=== PATIENT | male | born 1990 | race Caucasian/White ===

== ENCOUNTER 2023-08-18 09:34 | Inpatient (IN) ==
--- NOTE | 2023-08-18 10:11 | Emergency Department Note ---
Impression & Plan Cellulitis, Leukocytosis, Failure of outpatient treatment ED Provider Note NAME: ZAY HERNANDEZ AGE: 32 SEX: M : 1990 ARRIVES VIA: Walk-In INFORMANT: [Patient] ED PROVIDER(S): [Shivam Calhoun MD] CHIEF COMPLAINT: Infection HISTORY OF PRESENT ILLNESS: The patient is a 32-year-old male whose had 4 days of symptoms. He developed erythema of the right anterior knee. The patient was seen in our ED 2 days ago and diagnosed with cellulitis. He was placed on Bactrim and Keflex. Despite this antibiotic use, he has had increasing redness, pain. Things are not improved. The patient has no history of trauma to the knee. He has had cellulitis before. He thinks he suffered an abrasion from the wrestling mat and that this may be led to the infection. There has been no diarrhea, no cough or congestion. The patient has no history of diabetes. PMHx/PSHx/Social Hx: See Below PHYSICAL EXAM: GENERAL: Patient is in no acute distress. HEENT: No acute trauma, normocephalic atraumatic, mucous membranes moist, no nasal congestion. NECK: No stridor, no adenopathy, no meningismus, trachea is midline. LUNGS: Clear to auscultation bilaterally, no wheeze, no rhonchi, breath sounds equal. HEART: Without murmurs gallops or rubs, regular rate and rhythm. ABDOMEN: Soft, nontender, no peritonitis. EXTREMITIES: No cyanosis. The patient does have erythema and swelling to the right anterior knee, distal right thigh and proximal right tib-fib. There is warmth present. This entire area is tender with palpation. No drainage. The erythema has spread past the outlines previously placed. NEUROLOGIC: Oriented x 3, no acute motor or sensory deficits, no focal weakness. SKIN: No jaundice, no diaphoresis. DIFFERENTIAL DIAGNOSIS: Cellulitis, necrotizing fasciitis, failed outpatient management, septic joint, hematoma, among others. EMERGENCY DEPARTMENT PROCEDURES: MEDICAL DECISION MAKING: There is a mild leukocytosis, this would be consistent with infection. There was a normal hemoglobin and platelet count. No renal failure or significant electrolyte abnormality. Lactic acid level was not elevated making severe sepsis less likely. There were some subtle liver enzyme elevations. Right knee CT does show cellulitis and potential bursitis. No fracture or air within the soft tissue. On exam, the patient did have warmth and erythema as well as some swelling to the right leg around the knee. The erythema had spread past the outlined margins. The patient presents with worsening cellulitis despite 2 different antibiotics. He will require a hospital stay and IV antibiotic therapy. The patient received IV saline, 1 L. He was given IV morphine and IV Zofran. He was given IV ceftriaxone and IV vancomycin. I did speak with the patient about his need for a hospital stay, I did speak with case management, the on-call hospitalist was consulted. Prior/Outside records/notes reviewed: Previous ED note from 08/16/2023 discussing his presentation and treatment for cellulitis. Imaging/x-ray results per my interpretation: Chronic Medical/Social conditions affecting care: Care/Management discussed with: Case management, the on-call hospitalist. Level of care consideration(s): After review of the information above and other included data: --I believe the patient requires escalation of care to admission DISPOSITION: Admission Past Med/Surg History Medical History No pertinent past medical history Surgical History (Updated 08/18/23 @ 12:42 by Frank Dockery MD) History of sinus surgery Hx of LASIK H/O arthroscopy of left knee Social History Smoking Status: Never smoker Preferred Language: Ukrainian Feels Safe at Home: Yes Allergies Allergies Allergy/AdvReac Type Severity Reaction Status Date / Time No Known Allergies Allergy Verified 08/18/23 12:13 Home Meds Home Medications Medication Instructions Recorded Confirmed ibuprofen 200 mg tablet 200 mg PO Q6H PRN Pain 08/18/23 08/18/23 Previous Rx's Medication Instructions Recorded cephalexin 500 mg capsule 500 mg PO Q12H 10 days #20 caps 08/16/23 sulfamethoxazole 800 1 tab PO BID 10 days #20 tabs 08/16/23 mg-trimethoprim 160 mg tablet (Bactrim DS) Results & Data (ED) Vital Signs Vital Signs - 24 hr 08/18/23 09:38 08/18/23 11:14 Temperature 36.8 C Temperature Source Oral Pulse Rate 88 Pulse Rate [Radial] 70 Pulse Rhythm [Radial] Regular Respiratory Rate 18 18 Respiratory Effort / Characteristics Non-Labored Spontaneous Non-Labored Respiratory Depth Normal Normal Respiratory Pattern Regular Regular Blood Pressure 142/87 H Blood Pressure [Left Arm] 136/84 Blood Pressure Mean 105 Blood Pressure Mean [Left Arm] 101 Blood Pressure Position Sitting Pulse Oximetry 99 95 Oxygen Delivery Method Room Air Room Air Sepsis Recent Fever Within 48 Hours Yes Sepsis New/Unexplained Change in Mental Status N/A Sepsis Action Taken by Nursing No Action Required Home Medications Current Medication List: was personally reviewed by me Laboratory Data Attestation: I reviewed the patient's lab results. 08/18/23 10:17 08/18/23 10:17 Lab Results 08/18/23 Range/Units 10:17 WBC 11.86 H (4.8-10.8) K/ul RBC 5.20 (4.70-6.10) M/uL Hgb 14.5 (14.0-18.0) g/dl Hct 42.9 (42.0-52.0) % MCV 82.5 (80.0-100.0) fL MCH 27.9 (25.0-34.0) pg MCHC 33.8 (32.0-36.0) g/dL RDW Std Deviation 39.9 (36.4-46.3) fL RDW Coeff of Kaya 13.2 (11.5-14.5) % Plt Count 190 (130-400) K/uL MPV 10.0 (9.4-12.4) fL Immature Gran % (Auto) 0.4 % Neut % (Auto) 83.9 % Lymph % (Auto) 10.3 % [place] % (Auto) 5.0 % Eos % (Auto) 0.1 % Baso % (Auto) 0.3 % Neut # (Auto) 9.95 H (1.40-6.50) K/uL Lymph # (Auto) 1.22 (1.20-3.40) K/uL [place] # (Auto) 0.59 (0.11-0.59) K/uL Eos # (Auto) 0.01 (0.00-0.50) K/uL Baso # (Auto) 0.04 (0.00-0.20) K/uL Immature Gran # (Auto) 0.05 (0.01-0.20) K/uL Sodium 135 L (136-145) mmol/L Potassium 3.8 (3.5-5.1) mmol/L Chloride 100 (98-107) mmol/L Carbon Dioxide 25 (21-32) mmol/L Anion Gap 10 (3-11) BUN 16 (6-23) mg/dl Creatinine 1.03 (0.6-1.4) mg/dl Est Cr Clr Drug Dosing 119.6 ml/min Est GFR ( Amer) 110.1 ml/min Est GFR (Non-Af Amer) 95.0 ml/min BUN/Creatinine Ratio 15.5 (10-20) Glucose 149 H (70-99(Fasting)) mg/dl Lactate 0.9 (0.4-2.0) mmol/L Calcium 9.7 (8.6-10.3) mg/dl Total Bilirubin 1.1 H (0.2-1.0) mg/dl AST 52 H (13-39) U/L ALT 73 H (7-52) U/L Alkaline Phosphatase 70 (34-104) U/L Total Protein 7.7 (6.0-8.3) gm/dl Albumin 4.4 (3.4-5.0) gm/dl Globulin 3.3 (2.5-4.0) gm/dl Albumin/Globulin Ratio 1.3 (0.9-2) Administered Medications Discontinued Medications Sodium Chloride (Nss) 1,000 mls @ 999 mls/hr IV .Q1H1M ONE Stop: 08/18/23 11:05 Last Infusion: 08/18/23 11:23 Dose: Infused Documented By: Admin: 08/18/23 10:29 Dose: 999 mls/hr Documented By: HARESH Ceftriaxone Sodium (Rocephin) 2,000 mg in 50 mls @ 100 mls/hr IV NOW STA Stop: 08/18/23 10:34 Last Infusion: 08/18/23 11:07 Dose: Infused Documented By: Admin: 08/18/23 10:34 Dose: 100 mls/hr Documented By: HARESH Vancomycin HCl 2,500 mg/ (Sodium Chloride) 550 mls @ 200 mls/hr IV NOW ONE Stop: 08/18/23 13:18 Last Admin: 08/18/23 11:13 Dose: 200 mls/hr Documented By: KEG Ioversol (Optiray 320 500ml) 94 ml IV ONCE ONE Stop: 08/18/23 11:34 Last Admin: 08/18/23 11:33 Dose: 94 ml Documented By: JOSE Morphine Sulfate (Morphine Sulfate 4 Mg/Ml 1 Ml Carp\Vial) 4 mg IV NOW STA Stop: 08/18/23 10:06 Last Admin: 08/18/23 10:29 Dose: 4 mg Documented By: HARESH Ondansetron HCl (Ondansetron Inj 2 Mg/Ml 2 Ml Vial) 4 mg IV NOW STA Stop: 08/18/23 10:06 Last Admin: 08/18/23 10:29 Dose: 4 mg Documented By: HARESH Imaging Data Radiologist's Impression: Knee CT 08/18/23 10:05 CT SCAN OF THE RIGHT KNEE WITH IV CONTRAST CLINICAL HISTORY: Left knee swelling. Infection. COMPARISON STUDY: Radiographs of the right knee dated 08/16/2023. TECHNIQUE: CT scan of the right knee is performed from the distal femur to the proximal tibia and fibula following the IV administration of 94 mL of Optiray 320. Images are reviewed in the axial, sagittal, and coronal planes. IV contrast was administered without complication. A dose lowering technique was utilized adhering to the principles of ALARA. CT DOSE: 625.42 mGy.cm FINDINGS: The skeletal structures are well-mineralized. No fracture is seen. The joint spaces are maintained. There is no bony erosion. No joint effusion is identified. The regional musculature is normal in appearance. The popliteal vessels appear patent. There is significant prepatellar soft tissue edema and fluid, which tracks inferiorly into the upper calf, greatest laterally. No organized fluid collection is identified. No soft tissue gas is seen. IMPRESSION: 1. No acute bony abnormality is identified. 2. There is significant prepatellar soft tissue edema and fluid, which tracks inferiorly into the calf as above. The appearance favors a bursitis/cellulitis and clinical correlation will be required. 3. No organized/drainable fluid collection is identified. No soft tissue gas is seen. ACT 112: Negative or not required by law. Dictated: 08/18/2023 11:39 AM Transcribed: 08/18/2023 11:55 AM Pradeep [id number] [email or web address] Electronically signed by: Shivam Calabrese M.D. 08/18/2023 12:08 PM Discharge Plan Visit Data Chief Complaint: Infection Stated Complaint: CELLULITIS ED Provider: Shivam Calhoun Discharge Problem: Cellulitis, Leukocytosis, Failure of outpatient treatment Patient Disposition: Admitted As Inpatient Condition: Fair Forms Stand Alone Forms: [facility] Prescriptions Prescriptions: No Action ibuprofen 200 mg Tablet 200 mg PO Q6H PRN (Reason: Pain) cephalexin 500 mg capsule 500 mg PO Q12H 10 Days Qty: 20 0RF Rx Instructions: Start Date 08/16/23 - End Date 08/26/23. As of 08/18/23 pt has taken 5 doses. sulfamethoxazole-trimethoprim [Bactrim DS] 800-160 mg tablet 1 tab PO BID 10 Days Qty: 20 0RF Rx Instructions: Start Date 08/16/23 - End Date 08/26/23. As of 08/18/23 pt has taken 5 doses. Referrals Referrals: [facility] [Primary Care Provider] - Discharge Problem: Cellulitis Qualifiers: Site of cellulitis: extremity Site of cellulitis of extremity: lower extremity Laterality: right Qualified Code(s): L03.115 - Cellulitis of right lower limb Leukocytosis Qualifiers: Leukocytosis type: unspecified Qualified Code(s): D72.829 - Elevated white blood cell count, unspecified
[2023-08-18] MEDS: SODIUM CHLORIDE 0.9% 1,000 ML IV ONE (10:29)
[2023-08-18] MEDS: MoRPHine SULFATE 4 MG/ML 1 ML CARP\\VIAL IV STA (10:29)
[2023-08-18] MEDS: ONDANSETRON INJ 2 MG/ML 2 ML VIAL IV STA (10:29)
[2023-08-18] MEDS: cefTRIAXone SODIUM 2,000 MG/50 ML BAG IV STA (10:34)
[2023-08-18] MEDS ORDERED: VANCOMYCIN CONSULT ACTIVE PRN (10:34)
[2023-08-18 10:35] LABS: Basophils # (auto) 0.04 K/uL (0.00-0.20); Basophils % (auto) 0.3 %; Eosinophils # (auto) 0.01 K/uL (0.00-0.50); Eosinophils % (auto) 0.1 %; Hematocrit (blood only) 42.9 % (42.0-52.0); Hemoglobin 14.5 g/dl (14.0-18.0); Immature Granulocytes # (auto) 0.05 K/uL (0.01-0.20); Immature Granulocytes % (auto) 0.4 %; Lymphocytes # (auto) 1.22 K/uL (1.20-3.40); Lymphocytes % (auto) 10.3 %; Mean Corpuscular Hemoglobin 27.9 pg (25.0-34.0); Mean Corpuscular Hgb Conc 33.8 g/dL (32.0-36.0); Mean Corpuscular Volume 82.5 fL (80.0-100.0); Monocytes # (auto) 0.59 K/uL (0.11-0.59); Neutrophils # (auto) 9.95 K/uL (1.40-6.50); Neutrophils % (auto) 83.9 %; Platelet Count 190 K/uL (130-400); RDW Coefficient of Variation 13.2 % (11.5-14.5); RDW Standard Deviation 39.9 fL (36.4-46.3); White Blood Count 11.86 K/ul (4.8-10.8)
[2023-08-18 10:47] LABS: Albumin Globulin Ratio 1.3 (0.9-2); Albumin Level 4.4 gm/dl (3.4-5.0); BUN Creatinine Ratio 15.5 (10-20); Bilirubin,Total 1.1 mg/dl (0.2-1.0); Calcium 9.7 mg/dl (8.6-10.3); Creatinine Clr Calc Pharmacy 119.6 ml/min; Est GFR (African American) 110.1 ml/min; Globulin 3.3 gm/dl (2.5-4.0); Potassium 3.8 mmol/L (3.5-5.1); Total Protein 7.7 gm/dl (6.0-8.3)
[2023-08-18] MEDS: VANCOMYCIN HCL 2,500 MG in SODIUM CHLORIDE 0.9% 500 ML IV ONE (11:13)
[2023-08-18] MEDS: OPTIRAY 320 500ml IV ONE (11:33)
--- NOTE | 2023-08-18 12:09 | CT Scan Report ---
CT SCAN OF THE RIGHT KNEE WITH IV CONTRAST CLINICAL HISTORY: Left knee swelling. Infection. COMPARISON STUDY: Radiographs of the right knee dated 08/16/2023. TECHNIQUE: CT scan of the right knee is performed from the distal femur to the proximal tibia and fib brooke following the IV administration of 94 mL of Optiray 320. Images are reviewed in the axial, sagitt al, and coronal planes. IV contrast was administered without complication. A dose lowering technique was utilized adhering to the principles of ALARA. CT DOSE: 625.42 mGy.cm FINDINGS: The skeletal structures are well-mineralized. No fracture is seen. The joint spaces are malu ntained. There is no bony erosion. No joint effusion is identified. The regional musculature is helen l in appearance. The popliteal vessels appear patent. There is significant prepatellar soft tissue ed brandy and fluid, which tracks inferiorly into the upper calf, greatest laterally. No organized fluid co llection is identified. No soft tissue gas is seen. IMPRESSION: 1. No acute bony abnormality is identified. 2. There is significant prepatellar soft tissue edema and fluid, which tracks inferiorly into the lana f as above. The appearance favors a bursitis/cellulitis and clinical correlation will be required. 3. No organized/drainable fluid collection is identified. No soft tissue gas is seen. ACT 112: Negative or not required by law. Dictated: 08/18/2023 11:39 AM Transcribed: 08/18/2023 11:55 AM Pradeep [id number] [email or web address] Electronically signed by: Shivam Calabrese M.D. 08/18/2023 12:08 PM
--- NOTE | 2023-08-18 12:43 | History & Physical Report ---
Date of Service August 18, 2023 Assessment & Plan (1) Cellulitis: Plan: Failed Keflex and Bactrim - started 08/16 Agree with Vancomycin + Ceftriaxone Follow up blood cultures (2) Prepatellar bursitis: Plan: Consult orthopedics Plan VTE prophylaxis - Lovenox 40 mg subcu daily (despite young age she has increased risk due to calf infection) Diet - regular Disposition - observation to [facility] Admission and Anticipated Discharge Date Admission Date: August 18, 2023 History of Present Illness Chief Complaint: Cellulitis Primary Care Provider: [facility] Joe Austin is a 32-year-old male who presents to the ER due to right leg cellulitis which has been getting worse despite Bactrim and Keflex use. Initial symptoms were 4 days ago. No fever or chills. Started Keflex and Bactrim after coming to the ER 2 days ago. Initially erythema just spread with gravity but now tracking further down his leg therefore he decided to return to the ER. Joint movement is limited by generalized swelling but no specific pain in the joint itself. Allergies Allergy/AdvReac Type Severity Reaction Status Date / Time No Known Allergies Allergy Verified 08/18/23 12:13 Home Medications Medication Instructions Recorded Confirmed Type cephalexin 500 mg capsule 500 mg PO Q12H 10 days #20 caps 08/16/23 08/18/23 Rx sulfamethoxazole 800 1 tab PO BID 10 days #20 tabs 08/16/23 08/18/23 Rx mg-trimethoprim 160 mg tablet (Bactrim DS) ibuprofen 200 mg tablet 200 mg PO Q6H PRN Pain 08/18/23 08/18/23 History Past Med/Surg History Medical History No pertinent past medical history Surgical History (Updated 08/18/23 @ 12:42 by Frank Dockery MD) History of sinus surgery Hx of LASIK H/O arthroscopy of left knee Social History Smoking Status: Never smoker Second Hand Exposure: No; Do You Dip or Chew Tobacco: No; Hx Alcohol Use: Yes Alcohol type: beer Hx Substance Use: No Preferred Language: Romanian Communication Ability: Effective Hose Finisher Required: No Beliefs That Will Affect Care: None Current Living Situation: Spouse and Family Other Information That Helps Us Care for You: No Feels Safe at Home: Yes Safety Concerns: Feels Safe At This Time Assistive Devices: None Review of Systems 2 Review of Systems: All systems reviewed & are unremarkable except as noted in HPI & below Physical Exam 2 Constitutional: WD/WN, vitals as above Respiratory: normal respiratory effort, lungs clear to auscultation Cardiovascular: RRR, no murmur, no edema Gastrointestinal (Abdomen): normal bowel sounds, soft, nontender, no hepatosplenomegaly Skin: Results & Data Results & Data Vital Signs (Past 12 Hours) Vital Signs Temp Pulse Pulse Resp BP BP Pulse Ox 08/18/23 11:14 70 18 136/84 95 08/18/23 09:38 36.8 C 88 18 142/87 H 99 O2 Del Method 08/18/23 11:14 Room Air 08/18/23 09:38 Room Air Laboratory Results Abnormal lab results 08/18/23 Range/Units 10:17 WBC 11.86 H (4.8-10.8) K/ul Neut # (Auto) 9.95 H (1.40-6.50) K/uL ESR 63 H (0-15) mm/hr Sodium 135 L (136-145) mmol/L Glucose 149 H (70-99(Fasting)) mg/dl Total Bilirubin 1.1 H (0.2-1.0) mg/dl AST 52 H (13-39) U/L ALT 73 H (7-52) U/L C-Reactive Protein 20.99 H (0-0.5) mg/dl Diagnostic Findings CT SCAN OF THE RIGHT KNEE WITH IV CONTRAST CLINICAL HISTORY: Left knee swelling. Infection. COMPARISON STUDY: Radiographs of the right knee dated 08/16/2023. TECHNIQUE: CT scan of the right knee is performed from the distal femur to the proximal tibia and fibula following the IV administration of 94 mL of Optiray 320. Images are reviewed in the axial, sagittal, and coronal planes. IV contrast was administered without complication. A dose lowering technique was utilized adhering to the principles of ALARA. CT DOSE: 625.42 mGy.cm FINDINGS: The skeletal structures are well-mineralized. No fracture is seen. The joint spaces are maintained. There is no bony erosion. No joint effusion is identified. The regional musculature is normal in appearance. The popliteal vessels appear patent. There is significant prepatellar soft tissue edema and fluid, which tracks inferiorly into the upper calf, greatest laterally. No organized fluid collection is identified. No soft tissue gas is seen. IMPRESSION: 1. No acute bony abnormality is identified. 2. There is significant prepatellar soft tissue edema and fluid, which tracks inferiorly into the calf as above. The appearance favors a bursitis/cellulitis and clinical correlation will be required. 3. No organized/drainable fluid collection is identified. No soft tissue gas is seen. Medications Administered ER medications given: Normal saline 1 L bolus Morphine 4 mg IV Ondansetron 4 mg IV Ceftriaxone 2 g IV Vancomycin 2500 mg IV Code Status & VTE Plan Code Status Full VTE Prophylaxis Plan VTE Prophylaxis will be ordered: Yes PG Care Time/CCT Total # of Minutes Spent Total Time Spent with Patient: Total time spent is greater than 50% in coordination of care (as documented) at patient's floor/unit and/or counseling patient: Coding Level of Care Code 55791 INT INP/OBS CARE 2/55MIN Diagnoses Cellulitis L03.115 Laterality: right Site of cellulitis: extremity Site of cellulitis of extremity: lower extremity Prepatellar bursitis M70.40 (1) Cellulitis Laterality: right Site of cellulitis: extremity Site of cellulitis of extremity: lower extremity Qualified Code(s): L03.115 - Cellulitis of right lower limb
[2023-08-18 14:05] LABS: C Reactive Protein 20.99 mg/dl (0-0.5)
[2023-08-18] MEDS ORDERED: ONDANSETRON INJ 2 MG/ML 2 ML VIAL IV PRN (15:00)
[2023-08-18] MEDS: ENOXAPARIN INJ 40 MG/0.4 ML SYR SQ SCH (20:15)
[2023-08-18] MEDS: VANCOMYCIN HCL 1,000 MG in SODIUM CHLORIDE 0.9% 250 ML IV SCH (20:55)
--- NOTE | 2023-08-18 21:02 | Orthopedic Consultation ---
Date of Consultation August 18, 2023 Assessment & Plan (1) Cellulitis: 32-year-old male with right leg cellulitis -IV antibiotic therapy -Weightbearing as tolerated right lower extremity -Pain control -DVT prophylaxis -PT/OT -Given patient's clinical examination there is no significant intra-articular effusion we will fluctuance overlying the prepatellar bursa. Also on CT scan there does not appear to be any significant collections in the spaces that would be concerning for abscess or infected bursa. His imaging and clinical examination is consistent with cellulitis. No further orthopedic intervention. Would recommend continuing IV antibiotic therapy. Orthopedics will sign off History of Present Illness Reason for Consultation: Right leg cellulitis Attending Physician: Frank Dockery MD History of Present Illness 32-year-old male presenting with a 3-day history of right leg erythema and swelling. Patient denies any specific injuries or trauma. He does note that he was seen at an urgent care and emergency department and given a course of oral antibiotics however did not take 2 days worth of the antibiotics. The erythema has progressed. He does not have much pain with range of motion most of the pain is over the lateral aspect of his knee. These was asked to evaluate for concern for patellar bursitis. Allergies Allergy/AdvReac Type Severity Reaction Status Date / Time No Known Allergies Allergy Verified 08/18/23 12:13 Home Medications Medication Instructions Recorded Confirmed Type cephalexin 500 mg capsule 500 mg PO Q12H 10 days #20 caps 08/16/23 08/18/23 Rx sulfamethoxazole 800 1 tab PO BID 10 days #20 tabs 08/16/23 08/18/23 Rx mg-trimethoprim 160 mg tablet (Bactrim DS) ibuprofen 200 mg tablet 200 mg PO Q6H PRN Pain 08/18/23 08/18/23 History Patient History Medical History No pertinent past medical history Surgical History (Updated 08/18/23 @ 12:42 by Frank Dockery MD) History of sinus surgery Hx of LASIK H/O arthroscopy of left knee Social History Smoking Status: Never smoker Second Hand Exposure: No; Do You Dip or Chew Tobacco: No; Hx Alcohol Use: Yes Alcohol type: beer Hx Substance Use: No Preferred Language: Albanian Communication Ability: Effective Corporate Development Officer Required: No Beliefs That Will Affect Care: None Current Living Situation: Spouse and Family Other Information That Helps Us Care for You: No Feels Safe at Home: Yes Safety Concerns: Feels Safe At This Time Assistive Devices: None Physical Exam Constitutional: No distress, resting in bed Musculoskeletal: Right lower extremity -There is erythema overlying the anterio r lateral aspect of the knee. There is no significant effusion present. There is no significant fluctuance or swelling overlying the prepatellar bursa. Painless range of motion from 0 to 115 degrees - silt s/spn/dpn/t/s - fires ta/ehl/gsc + dp/pt Results & Data Vital Signs (Past 12 Hours) Vital Signs Temp Pulse Pulse Resp BP BP Pulse Ox 08/18/23 19:18 38.0 C H 89 16 141/80 H 99 08/18/23 17:27 37.0 C 88 16 128/81 98 08/18/23 17:01 83 16 129/77 98 08/18/23 14:27 75 18 120/60 95 08/18/23 13:00 78 18 118/64 99 08/18/23 11:14 70 18 136/84 95 08/18/23 09:38 36.8 C 88 18 142/87 H 99 O2 Del Method 08/18/23 19:18 Room Air 08/18/23 17:27 Room Air 08/18/23 17:01 Room Air 08/18/23 14:27 Room Air 08/18/23 13:00 Room Air 08/18/23 11:14 Room Air 08/18/23 09:38 Room Air (1) Cellulitis Laterality: right Site of cellulitis: extremity Site of cellulitis of extremity: lower extremity Qualified Code(s): L03.115 - Cellulitis of right lower limb
[2023-08-18] MEDS: IBUPROFEN 200 MG TAB PO PRN (21:45)
[2023-08-19 08:01] LABS: Basophils # (auto) 0.03 K/uL (0.00-0.20); Basophils % (auto) 0.3 %; Eosinophils # (auto) 0.14 K/uL (0.00-0.50); Eosinophils % (auto) 1.4 %; Hematocrit (blood only) 39.8 % (42.0-52.0); Hemoglobin 13.2 g/dl (14.0-18.0); Immature Granulocytes # (auto) 0.04 K/uL (0.01-0.20); Immature Granulocytes % (auto) 0.4 %; Lymphocytes # (auto) 1.22 K/uL (1.20-3.40); Lymphocytes % (auto) 12.2 %; Mean Corpuscular Hemoglobin 27.8 pg (25.0-34.0); Mean Corpuscular Hgb Conc 33.2 g/dL (32.0-36.0); Mean Platelet Volume 9.7 fL (9.4-12.4); Monocytes # (auto) 0.84 K/uL (0.11-0.59); Monocytes % (auto) 8.4 %; Neutrophils # (auto) 7.77 K/uL (1.40-6.50); Neutrophils % (auto) 77.3 %; Platelet Count 198 K/uL (130-400); RDW Coefficient of Variation 13.2 % (11.5-14.5); Red Blood Count 4.74 M/uL (4.70-6.10); White Blood Count 10.04 K/ul (4.8-10.8)
[2023-08-19 08:22] LABS: Albumin Globulin Ratio 1.3 (0.9-2); Albumin Level 3.8 gm/dl (3.4-5.0); BUN Creatinine Ratio 16.8 (10-20); Bilirubin,Total 0.7 mg/dl (0.2-1.0); Calcium 9.2 mg/dl (8.6-10.3); Creatinine Clr Calc Pharmacy 129.7 ml/min; Est GFR (African American) 121.4 ml/min; Est GFR (Non-African American) 104.8 ml/min; Potassium 4.1 mmol/L (3.5-5.1); Total Protein 6.8 gm/dl (6.0-8.3)
--- NOTE | 2023-08-19 09:36 | Pharmacy Report ---
Pharmacy PK ABX Note - Date of Service August 19, 2023 - Assessment and Plan Assessment 32 year old M receiving empiric vancomycin and ceftriaxone for treatment of right leg cellulitis (worsening despite outpatient treatment with Bactrim and cephalexin X 2 days). Pertinent microbiologic data includes: blood cultures x 2 (08/18/23) pending, blood cultures from initial ED visit (08/16) show no growth at 48 hours. Orthopedics consulted, no significant collections seen on CT. No intervention needed at this time. Elevated CRP on presentation (20.99 mg/dL). Tmax of 38 C yesterday, renal function relatively stable. Day # 2 of antimicrobial therapy. Plan Vancomycin * Loading dose: 2500 mg IV x 1 * Maintenance dose: 1000 mg IV every 8 hours * Regimen is predicted to achieve target AUC/MONTRELL of 400-600 mg/L.hr * Trough level ordered for: 08/19/23 at 0330 Ceftriaxone * 2 g IV q24h - appropriately dosed for indication Pharmacy will continue to follow and will adjust dose/frequency as necessary. Thank you. Pharmacy has transitioned to AUC monitoring for vancomycin. AUC/MONTRELL is the preferred PK/PD target and is associated with decreased risk of nephrotoxicity compared to traditional trough targets.
[2023-08-19] MEDS: cefTRIAXone SODIUM 2,000 MG in DEXTROSE 5 % MINI-B 50 ML IV SCH (10:25)
--- NOTE | 2023-08-19 12:27 | Hospitalist Progress Note ---
Date of Service August 19, 2023 Assessment & Plan (1) Cellulitis: Plan: Left lower extremity cellulitis, around any Failed Keflex and Bactrim - started 08/16 Some improvement Continue with Vancomycin + Ceftriaxone Follow up blood cultures (2) Prepatellar bursitis: Plan: No drainable fluid, no need for any orthopedic procedure Appreciate the recommendations. Plan VTE prophylaxis - Lovenox 40 mg subcu daily (despite young age she has increased risk due to calf infection) Diet - regular Disposition - observation to [facility] Admission and Anticipated Discharge Date Admission Date: August 18, 2023 Subjective Patient seen and examined, states the knee is still painful but the area of redness is getting better. Review of Systems Review of Systems: All systems reviewed are negative, apart from the ones contained in the history. Physical Exam Physical Exam: The patient is awake, alert and oriented 3, well developed and well nourished, normocephalic and atraumatic, lying in bed and in no acute distress. HEENT--PERRL, EOMI, mucous membranes and oropharynx mildly dry Neck--supple. No JVD. No bruits. Thyroid normal, trachea midline, no adenopathy. Heart--normal S1 and S2. No murmurs, rubs or gallops. Lungs--clear bilaterally, no respiratory distress, no accessory muscle use. Abdomen--normal bowel sounds and soft. Extremities--no cyanosis or clubbing. No edema. Dermatologic--normal skin turgor, normal color, no abnormal lymph nodes, no rash. Neurologic--cranial nerves II through XII grossly intact. Rheumatologic--normal range of motion. Psychiatric--normal affect. Results & Data Results & Data Vital Signs (Past 12 Hours) Vital Signs Temp Pulse Resp BP Pulse Ox O2 Del Method 08/19/23 08:14 99.5 F 84 18 116/79 99 Room Air PG Care Time/CCT Total # of Minutes Spent Total Time Spent with Patient: Total time spent is greater than 50% in coordination of care (as documented) at patient's floor/unit and/or counseling patient: Coding Level of Care Code 36869 SUB INP/OBS CARE 2/35MIN Diagnoses Cellulitis L03.115 Laterality: right Site of cellulitis: extremity Site of cellulitis of extremity: lower extremity Prepatellar bursitis M70.40 Time Spent (min) 35 (1) Cellulitis Laterality: right Site of cellulitis: extremity Site of cellulitis of extremity: lower extremity Qualified Code(s): L03.115 - Cellulitis of right lower limb
[2023-08-19] MEDS: LIDOCAINE 5% 1 PATCH TD STA (13:03)
[2023-08-20 04:35] LABS: C Reactive Protein 13.41 mg/dl (0-0.5); Creatinine Clr Calc Pharmacy 136.9 ml/min; Est GFR (African American) 129.6 ml/min; Est GFR (Non-African American) 111.8 ml/min
[2023-08-20] MEDS: VANCOMYCIN LEVEL ONE (04:38)
[2023-08-20] MEDS: ACETAMINOPHEN 325 MG TAB PO PRN (08:07)
--- NOTE | 2023-08-20 08:57 | Pharmacy Report ---
Pharmacy PK ABX Note - Date of Service August 20, 2023 - Assessment and Plan Assessment 32 year old M receiving empiric vancomycin and ceftriaxone for treatment of right leg cellulitis (worsening despite outpatient treatment with Bactrim and cephalexin X 2 days). Pertinent microbiologic data includes: blood cultures x 2 (08/18/23) show no growth at 24 hours, blood cultures from initial ED visit (08/16) show no growth at 48 hours. Orthopedics consulted, no significant collections seen on CT. No intervention needed at this time. Elevated CRP on presentation (20.99 mg/dL, now 13.4). Tmax of 38 C on 08/18, afebrile over past 24 hours, renal function relatively stable. Day # 2 of antimicrobial therapy. Plan Vancomycin * Current regimen: 1000 mg IV every 8 hours * Trough level obtained 08/20/23 resulted as 6.3 mcg/mL. This is predicted to achieve target AUC/MONTRELL of 400-600 mg/L.hr * Change to 1500 mg IV every 8 hours * Predicted AUC at steady state: 474 mg/L.hr * Will repeat level in the next 48-72 hours if therapy is continued and/or change in patient clinical status Ceftriaxone * 2 g IV q24h - appropriately dosed for indication Pharmacy will continue to follow and will adjust dose/frequency as necessary. Thank you. Pharmacy has transitioned to AUC monitoring for vancomycin. AUC/MONTRELL is the preferred PK/PD target and is associated with decreased risk of nephrotoxicity compared to traditional trough targets.
[2023-08-20] MEDS: VANCOMYCIN HCL 1,500 MG in SODIUM CHLORIDE 0.9% 500 ML IV SCH (12:08)
--- NOTE | 2023-08-20 12:41 | Hospitalist Progress Note ---
Date of Service August 20, 2023 Assessment & Plan (1) Cellulitis: Plan: Left lower extremity cellulitis, around any Failed Keflex and Bactrim - started 08/16 Some improvement in the area of redness Also inflammatory markers are down Continue with Vancomycin + Ceftriaxone Follow up blood cultures which have been negative so far (2) Prepatellar bursitis: Plan: No drainable fluid, no need for any orthopedic procedure Appreciate the recommendations. Plan VTE prophylaxis - Lovenox 40 mg subcu daily (despite young age he has increased risk due to calf infection) Diet - regular Disposition -hopefully discharge tomorrow Admission and Anticipated Discharge Date Admission Date: August 19, 2023 Subjective Patient seen and examined, states knee pain is much better, now able to flex his knees. Review of Systems Review of Systems: All systems reviewed are negative, apart from the ones contained in the history. Physical Exam Physical Exam: The patient is awake, alert and oriented 3, well developed and well nourished, normocephalic and atraumatic, lying in bed and in no acute distress. HEENT--PERRL, EOMI, mucous membranes and oropharynx mildly dry Neck--supple. No JVD. No bruits. Thyroid normal, trachea midline, no adenopa thy. Heart--normal S1 and S2. No murmurs, rubs or gallops. Lungs--clear bilaterally, no respiratory distress, no accessory muscle use. Abdomen--normal bowel sounds and soft. Extremities--no cyanosis or clubbing. No edema. Dermatologic--normal skin turgor, normal color, no abnormal lymph nodes, no rash. Neurologic--cranial nerves II through XII grossly intact. Rheumatologic--normal range of motion. Psychiatric--normal affect. Results & Data Results & Data Vital Signs (Past 12 Hours) Vital Signs Temp Pulse Resp BP Pulse Ox O2 Del Method 08/20/23 08:01 98.1 F 75 16 114/72 95 Room Air PG Care Time/CCT Total # of Minutes Spent Total Time Spent with Patient: Total time spent is greater than 50% in coordination of care (as documented) at patient's floor/unit and/or counseling patient: Coding Level of Care Code 38819 SUB INP/OBS CARE 2MIN Diagnoses Cellulitis L03.115 Laterality: right Site of cellulitis: extremity Site of cellulitis of extremity: lower extremity Prepatellar bursitis M70.40 Time Spent (min) 35 (1) Cellulitis Laterality: right Site of cellulitis: extremity Site of cellulitis of extremity: lower extremity Qualified Code(s): L03.115 - Cellulitis of right lower limb
[2023-08-21 08:58] LABS: Hematocrit (blood only) 41.5 % (42.0-52.0); Hemoglobin 13.5 g/dl (14.0-18.0); Mean Corpuscular Hemoglobin 27.5 pg (25.0-34.0); Mean Corpuscular Hgb Conc 32.5 g/dL (32.0-36.0); Mean Corpuscular Volume 84.5 fL (80.0-100.0); Mean Platelet Volume 9.5 fL (9.4-12.4); Platelet Count 256 K/uL (130-400); RDW Coefficient of Variation 13.2 % (11.5-14.5); RDW Standard Deviation 40.9 fL (36.4-46.3); Red Blood Count 4.91 M/uL (4.70-6.10); White Blood Count 8.24 K/ul (4.8-10.8)
[2023-08-21 09:17] LABS: C Reactive Protein 9.75 mg/dl (0-0.5); Creatinine Clr Calc Pharmacy 146.7 ml/min; Est GFR (African American) 133.3 ml/min
[2023-08-21] MEDS: KETOROLAC TROMETHAMINE 15 MG/ML VIAL IV ONE (09:26)
--- NOTE | 2023-08-21 12:43 | CT Scan Report ---
CT SCAN OF THE RIGHT KNEE WITHOUT IV CONTRAST CLINICAL HISTORY: Right knee swelling. COMPARISON STUDY: Radiographs of the right knee dated 08/16/2023. CT scan of the right knee dated 08/18. TECHNIQUE: CT scan of the right knee is performed from the distal femur to the proximal tibia and fib brooke. Images are reviewed in the axial, sagittal, and coronal planes. IV contrast was not administered for this examination. A dose lowering technique was utilized adhering to the principles of ALARA. CT DOSE: 519.16 mGy.cm FINDINGS: The skeletal structures are well mineralized. No fracture is seen. The joint spaces are malu ntained. No bony erosion is identified. No destructive bony lesion is seen. There is no significant j oint effusion. The regional musculature is normal in appearance. Significant soft tissue edema is aga in seen in the lateral aspect of the distal thigh, around the knee, and extending into the upper calf . There is subcutaneous fluid. No organized/drainable collection is seen. No soft tissue gas is ident ified. IMPRESSION: 1. No acute bony abnormality is identified. 2. Soft tissue edema and fluid surrounding the knee has not significantly changed from 08/18/2023. 3. There is no evidence of organized sludge or drainable fluid collection. ACT 112: Negative or not required by law. Dictated: 08/21/2023 11:07 AM Transcribed: 08/21/2023 11:38 AM Pradeep [id number] [email or web address] Electronically signed by: Shivam Calabrese M.D. 08/21/2023 12:41 PM
--- NOTE | 2023-08-21 13:11 | Hospitalist Progress Note ---
Date of Service August 21, 2023 Assessment & Plan (1) Cellulitis: Plan: Left lower extremity cellulitis, around any Failed Keflex and Bactrim - started 08/16 Some improvement in the area of redness Also inflammatory markers are down Continue with Vancomycin + Ceftriaxone Follow up blood cultures which have been negative so far (2) Prepatellar bursitis: Plan: No drainable fluid, no need for any orthopedic procedure CT scan of the left knee x 2 showed no drainable fluid Appreciate the recommendations. Plan VTE prophylaxis - Lovenox 40 mg subcu daily (despite young age he has increased risk due to calf infection) Diet - regular Disposition -hopefully discharge tomorrow Admission and Anticipated Discharge Date Admission Date: August 19, 2023 Subjective Patient seen and examined, said initially there was an improvement in the pain when he flexes needed however this morning he noted that the pain got worse, probably from over straining during physical therapy. Review of Systems Review of Systems: All systems reviewed are negative, apart from the ones contained in the history. Physical Exam Physical Exam: The patient is awake, alert and oriented 3, well developed and well nourished, normocephalic and atraumatic, lying in bed and in no acute distress. HEENT--PERRL, EOMI, mucous membranes and oropharynx mildly dry Neck--supple. No JVD. No bruits. Thyroid normal, trachea midline, no adenopathy. Heart--normal S1 and S2. No murmurs, rubs or gallops. Lungs--clear bilaterally, no respiratory distress, no accessory muscle use. Abdomen--normal bowel sounds and soft. Extremities--no cyanosis or clubbing. No edema. Dermatologic--normal skin turgor, normal color, no abnormal lymph nodes, no rash. Neurologic--cranial nerves II through XII grossly intact. Rheumatologic--normal range of motion. Psychiatric--normal affect. Results & Data Results & Data Vital Signs (Past 12 Hours) Vital Signs Temp Pulse Resp BP Pulse Ox O2 Del Method 08/21/23 11:36 98.2 F 78 16 113/67 100 Room Air 08/21/23 07:56 98.8 F 79 16 132/82 97 Room Air PG Care Time/CCT Total # of Minutes Spent Total Time Spent with Patient: Total time spent is greater than 50% in coordination of care (as documented) at patient's floor/unit and/or counseling patient: Coding Level of Care Code 52675 SUB INP/OBS CARE MIN Diagnoses Cellulitis L03.115 Laterality: right Site of cellulitis: extremity Site of cellulitis of extremity: lower extremity Prepatellar bursitis M70.40 Time Spent (min) 35 (1) Cellulitis Laterality: right Site of cellulitis: extremity Site of cellulitis of extremity: lower extremity Qualified Code(s): L03.115 - Cellulitis of right lower limb
--- NOTE | 2023-08-21 13:47 | Pharmacy Report ---
Pharmacy PK ABX Note - Date of Service August 21, 2023 - Assessment and Plan Assessment 32 year old M receiving empiric vancomycin and ceftriaxone for treatment of right leg cellulitis (worsening despite outpatient treatment with Bactrim and cephalexin X 2 days). Pertinent microbiologic data includes: blood cultures x 2 (08/18/23) show no growth at 48 hours, blood cultures from initial ED visit (08/16) also show no growth at 48 hours. Orthopedics consulted, no significant collections seen on CT. No intervention needed at this time. Elevated CRP on presentation (20.99 mg/dL, now 9.75). Tmax of 38 C on 08/18, afebrile over past 48 hours, renal function relatively stable. Patient with worsening leg pain today. Possible d/c tomorrow. Day # 4 of antimicrobial therapy. Plan Vancomycin * Current regimen: 1500 mg IV every 8 hours * Trough level obtained 08/21/23 resulted as 9 mcg/mL. This is predicted to achieve target AUC/MONTRELL of 400-600 mg/L.hr. However will increase dose today increase probability of target AUC attainment. * Change to 1750 mg IV every 8 hours * Predicted AUC at steady state: 497 mg/L.hr * Will repeat level in the next 48-72 hours if therapy is continued and/or change in patient clinical status Ceftriaxone * 2 g IV q24h - appropriately dosed for indication Pharmacy will continue to follow and will adjust dose/frequency as necessary. Thank you. Pharmacy has transitioned to AUC monitoring for vancomycin. AUC/MONTRELL is the preferred PK/PD target and is associated with decreased risk of nephrotoxicity compared to traditional trough targets.
[2023-08-21] MEDS: KETOROLAC TROMETHAMINE 15 MG/ML VIAL IV PRN (15:04)
[2023-08-21] MEDS: VANCOMYCIN HCL 1,750 MG in SODIUM CHLORIDE 0.9% 500 ML IV SCH (16:30)
[2023-08-22 09:14] LABS: C Reactive Protein 6.25 mg/dl (0-0.5); Est GFR (African American) 130.8 ml/min; Est GFR (Non-African American) 112.9 ml/min
--- NOTE | 2023-08-22 13:39 | Hospitalist Progress Note ---
Date of Service August 22, 2023 Assessment & Plan (1) Cellulitis: Plan: Right lower extremity cellulitis, around the knee Failed Keflex and Bactrim - started 08/16 Some improvement in the area of redness however pain and swelling persists Also inflammatory markers are down, CRP down from a high of 21-6 Continue with Vancomycin + Ceftriaxone Follow up blood cultures which have been negative so far (2) Prepatellar bursitis: Plan: No drainable fluid, no need for any orthopedic procedure CT scan of the right knee x 2 did not show any drainable fluid only showed subcutaneous edema We will start IV Lasix 40 mg twice daily to help with the swelling No orthopedic procedure for now Plan VTE prophylaxis - Lovenox 40 mg subcu daily (despite young age he has increased risk due to calf infection) Diet - regular Disposition -hopefully discharge tomorrow Admission and Anticipated Discharge Date Admission Date: August 19, 2023 Subjective Patient seen and examined, said initially there was an improvement in the pain when he flexes needed however there has been worsening pain especially on flexion. Review of Systems Review of Systems: All systems reviewed are negative, apart from the ones contained in the history. Physical Exam Physical Exam: The patient is awake, alert and oriented 3, well developed and well nourished, normocephalic and atraumatic, lying in bed and in no acute distress. HEENT--PERRL, EOMI, mucous membranes and oropharynx mildly dry Neck--supple. No JVD. No bruits. Thyroid normal, trachea midline, no adenopathy. Heart--normal S1 and S2. No murmurs, rubs or gallops. Lungs--clear bilaterally, no respiratory distress, no accessory muscle use. Abdomen--normal bowel sounds and soft. Extremities--no cyanosis or clubbing. No edema. Dermatologic--normal skin turgor, normal color, no abnormal lymph nodes, no rash. Neurologic--cranial nerves II through XII grossly intact. Rheumatologic--normal range of motion. Psychiatric--normal affect. Results & Data Results & Data Vital Signs (Past 12 Hours) Vital Signs Temp Pulse Resp BP Pulse Ox O2 Del Method 08/22/23 07:52 98.2 F 69 16 103/65 99 Room Air PG Care Time/CCT Total # of Minutes Spent Total Time Spent with Patient: Total time spent is greater than 50% in coordination of care (as documented) at patient's floor/unit and/or counseling patient: Coding Level of Care Code 05200 SUB INP/OBS CARE MIN Diagnoses Cellulitis L03.115 Laterality: right Site of cellulitis: extremity Site of cellulitis of extremity: lower extremity Prepatellar bursitis M70.40 Time Spent (min) 35 (1) Cellulitis Laterality: right Site of cellulitis: extremity Site of cellulitis of extremity: lower extremity Qualified Code(s): L03.115 - Cellulitis of right lower limb
[2023-08-22] MEDS: FUROSEMIDE 40 MG/4 ML VIAL IV SCH (18:15)
[2023-08-23 07:14] LABS: BUN Creatinine Ratio 22.4 (10-20); C Reactive Protein 3.96 mg/dl (0-0.5); Calcium 8.8 mg/dl (8.6-10.3); Creatinine Clr Calc Pharmacy 125.7 ml/min; Est GFR (African American) 116.9 ml/min; Est GFR (Non-African American) 100.9 ml/min; Potassium 4.1 mmol/L (3.5-5.1)
--- NOTE | 2023-08-23 10:51 | Hospitalist Progress Note ---
Date of Service August 23, 2023 Assessment & Plan (1) Cellulitis: Plan: Right lower extremity cellulitis, around the knee Failed Keflex and Bactrim - started 08/16 Some improvement in the area of redness pain and swelling Also inflammatory markers are down, CRP down from a high of 21 to 3 Continue with Vancomycin + Ceftriaxone Follow up blood cultures which have been negative so far Continue 1 more day of IV Lasix 40 mg twice daily to help with the swelling (2) Prepatellar bursitis: Plan: No drainable fluid, no need for any orthopedic procedure CT scan of the right knee x 2 did not show any drainable fluid only showed subcutaneous edema We will start IV Lasix 40 mg twice daily to help with the swelling No orthopedic procedure for now Plan VTE prophylaxis - Lovenox 40 mg subcu daily (despite young age he has increased risk due to calf infection) Diet - regular Disposition -hopefully discharge tomorrow Admission and Anticipated Discharge Date Admission Date: August 19, 2023 Subjective Patient seen and examined, feels a whole lot better today Review of Systems Review of Systems: All systems reviewed are negative, apart from the ones contained in the history. Physical Exam Physical Exam: The patient is awake, alert and oriented 3, well developed and well nourished, normocephalic and atraumatic, lying in bed and in no acute distress. HEENT--PERRL, EOMI, mucous membranes and oropharynx mildly dry Neck--supple. No JVD. No bruits. Thyroid normal, trachea midline, no adenopathy. Heart--normal S1 and S2. No murmurs, rubs or gallops. Lungs--clear bilaterally, no respiratory distress, no accessory muscle use. Abdomen--normal bowel sounds and soft. Extremities--no cyanosis or clubbing. No edema. Dermatologic--normal skin turgor, normal color, no abnormal lymph nodes, no rash. Neurologic--cranial nerves II through XII grossly intact. Rheumatologic--normal range of motion. Psychiatric--normal affect. Results & Data Results & Data Vital Signs (Past 12 Hours) Vital Signs Temp Pulse Resp BP Pulse Ox O2 Del Method 08/23/23 07:40 97.7 F 60 16 113/68 96 Room Air PG Care Time/CCT Total # of Minutes Spent Total Time Spent with Patient: Total time spent is greater than 50% in coordination of care (as documented) at patient's floor/unit and/or counseling patient: Coding Level of Care Code 13220 SUB INP/OBS CARE MIN Diagnoses Cellulitis L03.115 Laterality: right Site of cellulitis: extremity Site of cellulitis of extremity: lower extremity Prepatellar bursitis M70.40 Time Spent (min) 35 (1) Cellulitis Laterality: right Site of cellulitis: extremity Site of cellulitis of extremity: lower extremity Qualified Code(s): L03.115 - Cellulitis of right lower limb
[2023-08-24] MEDS: VANCOMYCIN LEVEL ONE (06:36)
[2023-08-24 06:37] LABS: Hematocrit (blood only) 41.1 % (42.0-52.0); Hemoglobin 13.3 g/dl (14.0-18.0); Mean Corpuscular Hemoglobin 27.4 pg (25.0-34.0); Mean Corpuscular Hgb Conc 32.4 g/dL (32.0-36.0); Mean Corpuscular Volume 84.7 fL (80.0-100.0); Platelet Count 282 K/uL (130-400); RDW Coefficient of Variation 12.9 % (11.5-14.5); RDW Standard Deviation 39.7 fL (36.4-46.3); Red Blood Count 4.85 M/uL (4.70-6.10); White Blood Count 5.92 K/ul (4.8-10.8)
[2023-08-24 07:08] LABS: Calcium 9.3 mg/dl (8.6-10.3); Potassium 4.1 mmol/L (3.5-5.1)
[2023-08-24 07:14] LABS: BUN Creatinine Ratio 25.9 (10-20); C Reactive Protein 2.58 mg/dl (0-0.5); Est GFR (African American) 99.5 ml/min; Est GFR (Non-African American) 85.8 ml/min
[2023-08-24] MEDS: VANCOMYCIN HCL 1,250 MG in SODIUM CHLORIDE 0.9% 250 ML IV SCH (10:41)
--- NOTE | 2023-08-24 11:35 | Discharge Summary ---
Date of Service August 24, 2023 Admission HPI Per Admitting Provider Joe Austin is a 32-year-old male who presents to the ER due to right leg cellulitis which has been getting worse despite Bactrim and Keflex use. Initial symptoms were 4 days ago. No fever or chills. Started Keflex and Bactrim after coming to the ER 2 days ago. Initially erythema just spread with gravity but now tracking further down his leg therefore he decided to return to the ER. Joint movement is limited by generalized swelling but no specific pain in the joint itself. Principal Diagnosis Right lower extremity cellulitis Discharge Exam The patient is awake, alert and oriented 3, well developed and well nourished, normocephalic and atraumatic, lying in bed and in no acute distress. HEENT--PERRL, EOMI, mucous membranes and oropharynx mildly dry Neck--supple. No JVD. No bruits. Thyroid normal, trachea midline, no adenopathy. Heart--normal S1 and S2. No murmurs, rubs or gallops. Lungs--clear bilaterally, no respiratory distress, no accessory muscle use. Abdomen--normal bowel sounds and soft. Extremities--no cyanosis or clubbing. No edema. Dermatologic--normal skin turgor, normal color, no abnormal lymph nodes, no rash. Neurologic--cranial nerves II through XII grossly intact. Rheumatologic--normal range of motion. Psychiatric--normal affect. Discharge Data Allergies Allergy/AdvReac Type Severity Reaction Status Date / Time No Known Allergies Allergy Verified 08/18/23 12:13 Consultations 08/18/23 12:20 ED Decision to Admit Stat 08/18/23 12:29 Consult Orthopedic Surgery Routine Ordered Studies 08/18/23 10:05 CT knee RT w con Stat 08/21/23 09:53 CT knee RT wo con Routine Hospital Course (1) Cellulitis: Right lower extremity cellulitis, around the knee Failed Keflex and Bactrim - started 08/16 Some improvement in the area of redness pain and swelling Also inflammatory markers are down, CRP down from a high of 21 to 3 Continue with Vancomycin + Ceftriaxone Follow up blood cultures which have been negative so far Discharged on p.o. cefdinir 300 mg twice daily for 5 more days (2) Prepatellar bursitis: No drainable fluid, no need for any orthopedic procedure CT scan of the right knee x 2 did not show any drainable fluid only showed subcutaneous edema We will start IV Lasix 40 mg twice daily to help with the swelling No orthopedic procedure for now Plan VTE prophylaxis - Lovenox 40 mg subcu daily (despite young age he has increased risk due to calf infection) Diet - regular Disposition -hopefully discharge tomorrow Total Time Total Time Spent Total Time Spent (In Minutes): 35 Discharge Plan Discharge Items Patient Disposition: Home - Self-Care Reason For Visit: CALLULITIS, PRE-PATELLAR BURSITIS Discharge Diagnosis: Right lower extremity cellulitis Condition on Discharge: Fair Activity: Per Instructions section Lifting: Gradually increase as tolerated Exercise/Sports: Gradually increase as tolerated Non-emergency contact: Primary Care Provider Call non-emergency contact if: you have any medication questions Follow-up/Referrals: [facility] [Primary Care Provider] - Diet: Regular Addtl Attending Provider Instructions: Please make appointment to follow-up with her regular PCP. Pending Studies at Discharge: No Stand-Alone Forms: My [employer], Work/School Release, Smoking Cessation Medications and DC Order Prescriptions: New cefdinir 300 mg capsule 300 mg PO BID 5 Days Qty: 10 0RF Continued ibuprofen 200 mg Tablet 200 mg PO Q6H PRN (Reason: Pain) Discontinued cephalexin 500 mg capsule 500 mg PO Q12H 10 Days Qty: 20 0RF Rx Instructions: Start Date 08/16/23 - End Date 08/26/23. As of 08/18/23 pt has taken 5 doses. sulfamethoxazole-trimethoprim [Bactrim DS] 800-160 mg tablet 1 tab PO BID 10 Days Qty: 20 0RF Rx Instructions: Start Date 08/16/23 - End Date 08/26/23. As of 08/18/23 pt has taken 5 doses. Discharge Orders: Discharge Order (Routine); Ordered 08/24/23 Ordered By: Kareem Walker Admission Data Admit Date/Time: 08/19/23 12:28 Attending Provider: Kareem Walker Admit Provider: Frank Dockery Primary Care Provider: [facility] Other Providers: Frank Dockery; Ryne Fountain Other Interventions: Discharge Summary Assessment (RN) Last Done: 03/03/24 10:56 Coding Level of Care Code 00541 INP/OBS DISCH >30 MIN Diagnoses Cellulitis L03.115 Laterality: right Site of cellulitis: extremity Site of cellulitis of extremity: lower extremity Prepatellar bursitis M70.40 Time Spent (min) 35
--- NOTE | 2023-08-24 12:21 | Pharmacy Report ---
Pharmacy PK ABX Note - Date of Service August 24, 2023 - Assessment and Plan Assessment 08/23: Random level this AM 22.6 mcg/ml, predicting above target AUC/MONTRELL- dose held this morning and restarted with lower dose scheduled for 1000. Patient was discharged/refused dose 32 year old M receiving empiric vancomycin and ceftriaxone for treatment of right leg cellulitis (worsening despite outpatient treatment with Bactrim and cephalexin X 2 days). Pertinent microbiologic data includes: blood cultures x 2 (08/18/23) show no growth at 48 hours, blood cultures from initial ED visit (08/16) also show no growth at 48 hours. Orthopedics consulted, no significant collections seen on CT. No intervention needed at this time. Elevated CRP on presentation (20.99 mg/dL, now 9.75). Tmax of 38 C on 08/18, afebrile over past 48 hours, renal function relatively stable. Patient with worsening leg pain today. Possible d/c tomorrow. Day # 4 of antimicrobial therapy. Plan Vancomycin * Current regimen: 1750 mg IV every 8 hours * random level obtained 08/23 resulted as 22.6 mcg/mL. This is predicted to be above target AUC/MONTRELL of 400-600 mg/L.hr * Change to 1250 mg IV every 8 hours * Patient discharged prior to new dose Ceftriaxone * 2 g IV q24h - appropriately dosed for indication Pharmacy will continue to follow and will adjust dose/frequency as necessary. Thank you. Pharmacy has transitioned to AUC monitoring for vancomycin. AUC/MONTRELL is the preferred PK/PD target and is associated with decreased risk of nephrotoxicity compared to traditional trough targets.
== END 2023-08-24 11:56 | disposition home or self-care (01) | DRG 603 ==
LOC: ED 09:34 → EDINP 09:34 → SUATTDRO 12:53 → 3N 15:00